=== PATIENT | female | born 1965 | race Two or more races ===

== ENCOUNTER 2018-10-21 10:58 | Emergency (ER) | payer MEDICAID ==
[~2018-10-21] VITALS: Ht 154.9 cm; Wt 63.0 kg
--- NOTE | 2018-10-21 11:17 | NUR ---
BACK AND NECK PAIN SINCE TUESDAY. TODAY IS 09/11, "SOME DAYS IT'S WORSE", FEELS LIKE PRESSURE. MOSTLY IN NECK AND RADIATES DOWN RIGHT ARM. NO OTHER COMPLAINTS AT THIS TIME. NO ACUTE DISTRESS NOTED. SLOVENIAN-SPEAKING, GRANDSON AT BEDSIDE. READY FOR EVAL
[2018-10-21] MEDS ORDERED: predniSONE 20 MG TABLET ONE (11:21)
[2018-10-21] MEDS ORDERED: predniSONE 10 MG TABLET PO ONE (11:30)
--- NOTE | 2018-10-21 11:35 | NUR ---
PT TAKEN TO CT VIA WC
[2018-10-21] MEDS ORDERED: predniSONE 20 MG TABLET PO ONE (12:00)
--- NOTE | 2018-10-21 12:48 | NUR ---
Patient discharged to home in stable condition. Written and verbal after care instructions given. Patient verbalizes understanding of instruction.
[2018-10-21 12:49] VITALS: BP 121/72
== END 2018-10-21 12:50 | disposition home or self-care (01) ==
LOC: ER 10:59
DX: M54.12 Radiculopathy, cervical region (principal)
CPT/HCPCS: 72125; 93005; 99284; J7512

== ENCOUNTER 2020-01-16 16:04 | Emergency (ER) | payer MEDICAID ==
[~2020-01-16] VITALS: Ht 154.9 cm; Wt 61.2 kg
--- NOTE | 2020-01-16 16:40 | NUR ---
From home, with c/o generalized itchiness for 3 days
[2020-01-16] MEDS ORDERED: ACETAMINOPHEN 325 MG TABLET ONE ×2 (17:11→17:12)
[2020-01-16] MEDS ORDERED: ACETAMINOPHEN 325 MG TABLET PO ONE (17:30)
--- NOTE | 2020-01-16 18:26 | NUR ---
Patient discharged to home in stable condition. Written and verbal after care instructions given. Patient verbalizes understanding of instruction.
[2020-01-16 18:28] VITALS: BP 128/74
== END 2020-01-16 18:28 | disposition home or self-care (01) ==
LOC: ER 16:16
DX: R51.9 Headache, unspecified (principal); L30.9 Dermatitis, unspecified; E78.00 Pure hypercholesterolemia, unspecified; F17.200 Nicotine dependence, unspecified, uncomplicated
CPT/HCPCS: 70450-TC

== ENCOUNTER 2020-04-15 13:04 | Emergency (ER) | payer MEDICAID ==
[~2020-04-15] VITALS: Ht 160 cm; Wt 63.5 kg
[2020-04-15 13:25] VITALS: BP 113/77
--- NOTE | 2020-04-15 14:55 | NUR ---
DESPITE HAVING COVID SYMPTOMS AND WITH MD ORDER TO HAVE A COVID SWAB, PT REFUSED IT TO BE DONE. EXPLAINED TO PT THAT HER SYMPTOMS ARE OF COVID, SHE THINKS THAT IT IS NOT COVID AND STILL REFUSED TO HAVE A COVID TEST. MD WAS MADE AWARE. PT WAS INSTRUCTED TO QUARATINE SELF FOR 2 WEEKS UTNTILL HER SYMPTOMS PASS.
--- NOTE | 2020-04-15 14:57 | NUR ---
Patient discharged to home in stable condition. Written and verbal after care instructions given. Patient verbalizes understanding of instruction. Pt ambulatory with a steady gait
== END 2020-04-15 14:58 | disposition home or self-care (01) ==
LOC: ER 13:05
DX: R52 Pain, unspecified (principal); Z20.822 Contact with and (suspected) exposure to COVID-19; E78.00 Pure hypercholesterolemia, unspecified; Z87.19 Personal history of other diseases of the digestive system
CPT/HCPCS: J7030

== ENCOUNTER 2020-10-14 13:42 | Emergency (ER) | payer MEDICAID ==
[~2020-10-14] VITALS: Ht 152.4 cm; Wt 59.0 kg
[2020-10-14 14:02] VITALS: BP 118/83
--- NOTE | 2020-10-14 15:08 | NUR ---
PATIENT REFUSED TO WAIT TO BE SEEN BY MD. PATIENT WALKED OUT OF THE ER. DR. XAVIER GILBERT.
== END 2020-10-14 15:11 | disposition left against medical advice (07) ==
LOC: ER 13:42
DX: L98.9 Disorder of the skin and subcutaneous tissue, unspecified (principal); E78.5 Hyperlipidemia, unspecified; E11.9 Type 2 diabetes mellitus without complications